=== PATIENT | male | born 1965 | race African-American/Black ===

== ENCOUNTER 2017-01-20 18:34 | Emergency (ER) | payer MEDICAID, MEDICARE ==
[2017-01-20] MEDS ORDERED: Aspirin Low Dose CHEW TAB* 81 MG ONE (19:02)
--- NOTE | 2017-01-20 19:09 | UC ---
Eva Townsend SooYoung, scribed for Leonel Almazan MD on 01/20/17 at 1851 . Cardiac HPI - HPI Summary HPI Summary: A 51 y/o M presents to [facility] [place] [facility] [place] with c/o acute on chronic, constant CP and discomfort onset this AM. He states having CP for past three months. Associated sx: SOB, cough, chest congestion, chest tightness. He has been doing strenuous activity this week. Pt saw his PCP this AM, they took his BP and it was nml, but recommended he see someone. Pert PMHx: pericarditis, usually 3x year. 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 Pt is a smoker, rare drinker. PCP is Dr. Serna, he's scheduled to see him again on Monday. - History of Current Complaint Chief Complaint: UCChestPain Stated Complaint: CHEST PAIN Time Seen by Provider: 01/20/17 18:43 Hx Obtained From: Patient Onset/Duration: Lasting Hours, Still Present Timing: Constant Chest Pain Location: Mid Sternal Associated Signs & Symptoms: Positive: SOB, Cough - Allergy/Home Medications Allergies/Adverse Reactions: Allergies Allergy/AdvReac Type Severity Reaction Status Date / Time Amoxicillin Allergy Stomach Verified 01/20/17 19:01 Cramps PMH/Surg Hx/FS Hx/Imm Hx Previously Healthy: No - fibromyalgia - Surgical History Surgical History: Yes Surgery Procedure, Year, and Place: CYST REMOVED - UNDER CHIN. BIOPSY - BLADDER - Family History Known Family History: Positive: Cardiac Disease - sister at 47, Hypertension - Social History Occupation: Disabled Lives: With Family Alcohol Use: Weekly Alcohol Amount: 1x/week Substance Use Type: Marijuana Substance Use Comment - Amount & Last Used: 3x/week Smoking Status (MU): Smoker, Current Status Unknown Review of Systems Respiratory: Shortness Of Breath, Cough, Other - chest congestion Cardiovascular: Chest Pain - and discomfort and tightness All Other Systems Reviewed And Are Negative: Yes Physical Exam Triage Information Reviewed: Yes Vital Signs: Initial Vital Signs Temp 97.9 F 01/20/17 18:35 Pulse 95 01/20/17 18:35 Resp 18 01/20/17 18:35 BP 124/78 01/20/17 18:35 Pulse Ox 100 01/20/17 18:35 Vital Signs Reviewed: Yes - Additional Comments The patient is well-nourished in no acute distress and in no acute pain. The skin is warm and dry and skin color reflects adequate perfusion. HEENT: The head is normocephalic and atraumatic. The pupils are equal and reactive. The conjunctivae are clear and without drainage. Nares are patent and without drainage. Mouth reveals moist mucous membranes and the throat is without erythema and exudate. The external ears are intact. The ear canals are patent and without drainage. The tympanic membranes are intact. Neck is supple with full range of motion and non-tender. There are no carotid bruits. There is no neck vein distension. Respiratory: Lungs are clear to auscultation and breath sounds are symmetrical and equal. POSSIBLE Cardiovascular: Heart is regular rate and rhythm. There is no murmur or rub auscultated. There is no peripheral edema and pulses are symmetrical and equal. Abd: Soft and nontender. Musculoskeletal: There is no back pain noted. Extremities are non-tender with full range of motion. There is good capillary refill. There is no peripheral edema or calf tenderness elicited. Neurological: Patient is alert and oriented to person, place and time. The patient has symmetrical motor strength in all four extremities. Cranial nerves are grossly intact. Deep tendon reflexes are symmetrical and equal in all four extremities. Psychiatric: The patient has an appropriate affect and does not exhibit any anxiety or depression. Diagnostics - EKG Cardiac Rate: NL Cardiac Rhythm: Sinus: Normal - Assessment/Plan Course Of Treatment: Pt medications reviewed this visit. Normal BP reading and no follow-up instructions required. Discussed with pt need for trans to [facility] for further evaulation, he declined ambulance, will go by private car. pt has significiant family history and history of tobacco use. pt needs labs and imaging. pt was administered aspirin 324 mg chewable aspirin. - Differential Diagnoses - Chest Pain Differential Diagnosis/HQI/PQRI: Acute LA, ACS, Angina, GI Disease, Lower Respiratory Infection, Other: - acute coronary infarct, perciarditis, pneumonia, - Differential Diagnoses - Palpitations Differential Diagnosis/HQI/PQRI: Congestive Heart Failure, Myocarditis, Pericarditis - Clinical Impression Provider Diagnoses: chest pain Discharge - Discharge Plan Condition: Stable Disposition: AGAINST MEDICAL ADVICE Discharge Disposition Comment: recommended going to ED by ambulance, he declined , will go by priv car Referrals: Kareem JAMES,Cain Roth [Primary Care Provider] - The documentation as recorded by the Eva booth SooYoung accurately reflects the service I personally performed and the decisions made by me, Leonel Almazan MD.
[2017-01-20 19:19] VITALS: BP 124/84
[2017-01-21] MEDS ORDERED: Aspirin Low Dose CHEW TAB* 81 MG PO ONE (18:59)
== END 2017-01-20 19:10 | disposition left against medical advice (07) ==
LOC: UCEAST 18:34
DX: R07.9 Chest pain, unspecified (principal); Z82.49 Family history of ischemic heart disease and other diseases of the circulatory system; F17.200 Nicotine dependence, unspecified, uncomplicated
CPT/HCPCS: 93005; 99212; A9270-GY; G0463